=== PATIENT | male | born 1990 | race Caucasian/White ===

== ENCOUNTER 2017-03-09 16:08 | Emergency (ER) | payer MEDICAID ==
[~2017-03-09] VITALS: Ht 180.3 cm; Wt 74.8 kg
[2017-03-09 16:20] VITALS: BP_SYST 127
[2017-03-09 16:58] VITALS: BP_SYST 127
== END 2017-03-09 16:58 | disposition home or self-care (01) ==
LOC: SED 16:08
DX: L03.115 Cellulitis of right lower limb (principal); F17.290 Nicotine dependence, other tobacco product, uncomplicated; Z90.49 Acquired absence of other specified parts of digestive tract
CPT/HCPCS: 99283

== ENCOUNTER 2017-03-18 22:56 | Emergency (ER) | payer MEDICAID ==
[~2017-03-18] VITALS: Ht 180.3 cm; Wt 74.8 kg
[2017-03-18 22:56] VITALS: BP_SYST 145
--- NOTE | 2017-03-18 22:56 | NUR ---
PT IN WAITING ROOM AWAITING AVILABLE BED. STABLE.
--- NOTE | 2017-03-18 23:20 | NUR ---
Patient to ER bed 6 to gown for evaluation. Side rails up. Report given to PANKAJ WREN.
--- NOTE | 2017-03-18 23:35 | NUR ---
Dr Young at bedside to evaluate patient. Orders received
--- NOTE | 2017-03-18 23:47 | NUR ---
Patient to CT scan via wheelchair in stable condition.
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
--- NOTE | 2017-03-18 23:56 | NUR ---
Patient back from CT scan in stable condition. Will continue to observe and assess.
--- NOTE | 2017-03-19 00:40 | NUR ---
Patient to bathroom to provide urine sample. Urine sample obtained and sent to lab. Patient resting quietly in nad.
[2017-03-19 01:20] LABS: BARBITURATE, URINE NEGATIVE (NEG <=200); BENZODIAZEPINE, URINE POSITIVE (NEG <=150); CANNABINOID, URINE POSITIVE (NEG <=50); COCAINE, URINE NEGATIVE (NEG <=150); METHAMPHETAMINES SCREEN,URINE NEGATIVE (NEG <=500); OPIATE, URINE NEGATIVE (NEG <=100); PHENCYCLIDINE SCREEN,URINE NEGATIVE (NEG <=25); URINE AMPHETAMINE NEGATIVE (NEG <=500); URINE METHADONE NEGATIVE (NEG <=200); URINE OXYCODONE SCREEN NEGATIVE (NEG <=100); URINE PROPOXYPHENE SCREEN NEGATIVE (NEG <=300)
[2017-03-19 01:21] LABS: UR TRICYCLIC ANTIDEPRESSANTS NEGATIVE (NEG <=300)
[2017-03-19 02:51] VITALS: BP_SYST 142
--- NOTE | 2017-03-19 02:53 | NUR ---
Patient given written and verbal discharge instructions and verbalizes understanding. ER MD discussed with patient the results and treatment provided. Patient in stable condition. ID arm band removed No RX given. Patient educated on pain management and to follow up with PMD. Pain Scale 3. Opportunity for questions provided and answered.
== END 2017-03-19 02:51 | disposition home or self-care (01) ==
LOC: SED 22:56
DX: S09.90XA Unspecified injury of head, initial encounter (principal); W22.8XXA Striking against or struck by other objects, initial encounter; Y93.G3 Activity, cooking and baking; Y92.89 Other specified places as the place of occurrence of the external cause; Y99.8 Other external cause status
CPT/HCPCS: 36415; 70450; 72125; 80307; 99285; G0482

== ENCOUNTER 2018-08-27 00:27 | Emergency (ER) | payer SELFPAY ==
[~2018-08-27] VITALS: Ht 180.3 cm; Wt 74.8 kg
[2018-08-27 00:50] VITALS: BP_SYST 112
--- NOTE | 2018-08-27 01:30 | NUR ---
Patient to ER bed 7 to gown for evaluation. Side rails up. Report given to PANKAJ Thomas.
--- NOTE | 2018-08-27 01:35 | NUR ---
Patient to ER via triage for evaluation of fever, body aches, headache and cough x 1 day. Patient is awake, alert and oriented in no acute distress, HR elevated and febrile to 104.6 while in triage, passive cooling measures done, respirations even and unlabored, skin warm and dry to touch with friend at his side. Awaiting evaluation by ER MD, will continue to observe and assess.
--- NOTE | 2018-08-27 02:10 | NUR ---
ER Dr. Rowe at bedside examining patient.
[2018-08-27] MEDS ORDERED: ACETAMINOPHEN 325 MG TABLET PO ONE (02:30)
[2018-08-27] MEDS ORDERED: OSELTAMIVIR PHOSPHATE 75 MG CAPSULE PO ONE (02:30)
--- NOTE | 2018-08-27 03:00 | NUR ---
Patient resting quietly in no acute distress, no adverse reaction noted to medication.
[2018-08-27 03:15] VITALS: BP_SYST 110
--- NOTE | 2018-08-27 03:25 | NUR ---
Note undone in EDM - 08/27/18 at 0331 by GILBERTO Patient given written and verbal discharge instructions and verbalizes understanding. ER MD discussed with patient the results and treatment provided. Patient in stable condition. ID arm band removed. Rx of Tamiflu, Tylenol, Clindamycin given. Patient educated on pain management and to follow up with PMD. Pain Scale 0. Opportunity for questions provided and answered. Medication side effect fact sheet provided. Patient left ER in no acute distress, ambulating with slow, steady gait. No adverse reaction noted to medication.
--- NOTE | 2018-08-27 03:25 | NUR ---
Patient given written and verbal discharge instructions and verbalizes understanding. ER MD discussed with patient the results and treatment provided. Patient in stable condition. ID arm band removed. Rx of Tamiflu, Tylenol given. Patient educated on pain management and to follow up with PMD. Pain Scale 0. Opportunity for questions provided and answered. Medication side effect fact sheet provided. Patient left ER in no acute distress, ambulating without difficulty. No adverse reaction noted to medication.
== END 2018-08-27 03:25 | disposition home or self-care (01) ==
LOC: SED 00:27
DX: J11.1 Influenza due to unidentified influenza virus with other respiratory manifestations (principal)
CPT/HCPCS: 36415; 86710; 99283; G9035

== ENCOUNTER 2019-04-06 12:27 | Emergency (ER) | payer MEDICAID ==
[~2019-04-06] VITALS: Ht 180.3 cm; Wt 74.8 kg
--- NOTE | 2019-04-06 12:40 | NUR ---
Lizzie ford in EDM - 04/07/19 at 0632 by [email or web address] MILLIE Umaña at bedside examining patient.
[2019-04-06 12:41] VITALS: BP_SYST 121
--- NOTE | 2019-04-06 12:46 | NUR ---
Patient triaged and placed in waiting room. VSS and patient appears in no acute distress at this time. Accompanied by self, awaiting available bed, and MD notified of need for MSE.
--- NOTE | 2019-04-06 12:50 | NUR ---
Lizzie ford in ED - 04/06/19 at 1610 by [email or web address] MILLIE Escudero at bedside examining patient.
[2019-04-06] MEDS ORDERED: NACL 0.9% 1,000 ML IV ONE (12:53)
[2019-04-06 13:40] LABS: BASOPHILS # (AUTO) 0.1 K/uL (0.0-0.2); BASOPHILS % (AUTO) 0.8 % (0.0-2.0); EOSINOPHILS # (AUTO) 0.1 K/uL (0.0-0.4); EOSINOPHILS % (AUTO) 1.3 % (0.0-4.0); HEMATOCRIT 49.5 % (36-54); LYMPHOCYTES # (AUTO) 2.2 K/uL (1.0-5.5); LYMPHOCYTES % (AUTO) 30.1 % (20.5-51.5); MEAN CORPUSCULAR HEMOGLOBIN 31 pg (27-31); MEAN CORPUSCULAR HGB CONC 34 % (32-36); MEAN CORPUSCULAR VOLUME 89 fL (79.0-98.0); MONOCYTES # (AUTO) 0.5 K/uL (0.0-1.0); MONOCYTES % (AUTO) 7.5 % (1.7-9.3); NEUTROPHILS # (AUTO) 4.4 K/uL (1.8-7.7); NEUTROPHILS % (AUTO) 60.3 % (40.0-70.0); PLATELET COUNT (AUTO) 414 K/uL (130-430); RED BLOOD CELL COUNT(AUTO) 5.53 MIL/uL (4.2-6.2); RED CELL DISTRIBUTION WIDTH 13.2 % (9.0-15.0); WHITE BLOOD COUNT (AUTO) 7.3 K/uL (4.8-10.8)
[2019-04-06 13:51] LABS: CALCIUM 9.4 mg/dL (8.4-11.0); CREATININE 0.98 mg/dL (0.55-1.30); POTASSIUM 3.6 mmol/L (3.5-5.1)
[2019-04-06 14:01] LABS: ALBUMIN 4.1 g/dL (3.4-4.8); TOTAL BILIRUBIN 0.2 mg/dL (0.0-1.0)
[2019-04-06 14:09] LABS: INR 0.9 (0.80-1.20); PROTHROMBIN TIME 9.7 SECS (9.5-12.5)
--- NOTE | 2019-04-06 15:30 | NUR ---
PATIENT AMBULATED TO BED 4.
[2019-04-06] MEDS ORDERED: cefTRIAXone 1 GM IVPB PREMIX 50 ML IV ONE (16:00)
[2019-04-06] MEDS ORDERED: LORazepam 2 MG/ML VIAL (FOR ER USE) IVP ONE (16:00)
--- NOTE | 2019-04-06 16:00 | NUR ---
ER at bedside examining patient.
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
[2019-04-06 16:23] LABS: BILIRUBIN,URINE NEGATIVE (NEGATIVE); BLOOD, URINE 1+ (NEGATIVE); CLARITY/URINE SL HAZY (CLEAR); COLOR,URINE YELLOW (YELLOW); GLUCOSE,URINE NEGATIVE (NEGATIVE); KETONES,URINE NEGATIVE (NEGATIVE); LEUKOCYTE ESTERASE ,URINE NEGATIVE (NEGATIVE); NITRITE, URINE NEGATIVE (NEGATIVE); PROTEIN URINE 1+ (NEGATIVE); UROBILINOGEN,URINE 0.2 (0.2-1.0)
--- NOTE | 2019-04-06 16:38 | NUR ---
PT TRANSPORTED TO CT IN STABLE CONDITION.
[2019-04-06 16:45] LABS: BACTERIA,URINE FEW /HPF (None Seen); CALCIUM OXALATE CRYSTALS,UR 0-10 /HPF (None Seen); MUCUS,URINE 3+ /LPF (None Seen)
[2019-04-06 18:30] VITALS: BP_SYST 128
--- NOTE | 2019-04-06 18:34 | NUR ---
Patient given written and verbal discharge instructions and verbalizes understanding. ER MD discussed with patient the results and treatment provided. Patient in stable condition. ID arm band removed. IV catheter removed intact and dressing applied, no active bleeding. Rx of Naproxin, Ativan, doxycycline given. Patient educated on pain management and to follow up with PMD. Pain Scale 3/10 .Opportunity for questions provided and answered. Medication side effect fact sheet provided.
== END 2019-04-06 18:34 | disposition home or self-care (01) ==
LOC: SED 12:27
DX: S13.8XXA Sprain of joints and ligaments of other parts of neck, initial encounter (principal); F17.210 Nicotine dependence, cigarettes, uncomplicated; S00.86XA Insect bite (nonvenomous) of other part of head, initial encounter; T14.8XXA Other injury of unspecified body region, initial encounter; W57.XXXA Bitten or stung by nonvenomous insect and other nonvenomous arthropods, initial encounter; Y93.89 Activity, other specified; Y92.89 Other specified places as the place of occurrence of the external cause; Y99.8 Other external cause status
CPT/HCPCS: 36415; 71045; 72125; 80053; 81000; 82150; 83605; 83690; 85025; 85610; 85730; 87040; 96365; 96375; 99284; J0696; J2060

== ENCOUNTER 2021-11-08 10:01 | Emergency (ER) | payer MEDICAID ==
[~2021-11-08] VITALS: Ht 180.3 cm; Wt 81.6 kg
--- NOTE | 2021-11-08 10:13 | NUR ---
Patient to ER bed 04 to gown for evaluation. Side rails up.
[2021-11-08 10:14] VITALS: BP_SYST 126
--- NOTE | 2021-11-08 10:20 | NUR ---
ER DR. ORDONEZ AT THE BEDSIDE EXAMINING PT
--- NOTE | 2021-11-08 10:27 | NUR ---
Patient transported to radiology via AMBULATION, accompanied by STAFF.
[2021-11-08] MEDS ORDERED: KETOROLAC TROMETHAMINE 60 MG/2 ML VIAL IM ONE (10:30)
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
--- NOTE | 2021-11-08 10:35 | NUR ---
Returned from radiology, back to [facility].
--- NOTE | 2021-11-08 11:02 | NUR ---
Patient transported to radiology via AMBULATION accompanied by STAFF.
--- NOTE | 2021-11-08 11:05 | NUR ---
Returned from radiology, back to [facility].
[2021-11-08] MEDS ORDERED: HYDR-3917 PO (12:43)
[2021-11-08] MEDS ORDERED: IBUP-1971 PO (12:43)
[2021-11-08 12:49] VITALS: BP_SYST 121
--- NOTE | 2021-11-08 12:49 | NUR ---
Patient given written and verbal discharge instructions and verbalizes understanding. ER MD discussed with patient the results and treatment provided. Patient in stable condition. ID arm band removed. Rx of NORCO AND IBUPROFEN given. Patient educated on pain management and to follow up with PMD. Pain Scale 0/10. Opportunity for questions provided and answered. Medication side effect fact sheet provided.
== END 2021-11-08 12:49 | disposition home or self-care (01) ==
LOC: SED 10:01
DX: S13.4XXA Sprain of ligaments of cervical spine, initial encounter (principal); S40.012A Contusion of left shoulder, initial encounter; S09.90XA Unspecified injury of head, initial encounter; W18.39XA Other fall on same level, initial encounter; Y93.89 Activity, other specified; Y92.89 Other specified places as the place of occurrence of the external cause; Y99.8 Other external cause status
CPT/HCPCS: 70450; 72125; 73030; 76376; 96372; 99284; J1885